=== PATIENT | male | born 1950 | race African-American/Black ===

== ENCOUNTER 2022-08-26 13:21 | Emergency (ER) | payer MEDICARE, MEDICAID ==
[~2022-08-26] VITALS: Ht 180.3 cm; Wt 96.0 kg
[2022-08-26 13:28] VITALS: BP 132/88
[2022-08-26] MEDS ORDERED: PREDNISONE 20MG TABLET PO STA (13:44)
[2022-08-26] MEDS ORDERED: ALBUTEROL (0.083%) 2.5MG/3ML NEB HHN STA (13:44)
[2022-08-26] MEDS ORDERED: IPRATROPIUM BROMIDE (0.02%) 0.5MG/2.5ML NEB HHN STA (13:44)
[2022-08-26 15:48] LABS: BASOPHILS % 0.5 % (0.0-2.0); EOSINOPHILS % 0.3 % (0.0-5.0); LYMPHOCYTES % 6.3 % (20.0-50.0); MEAN CORPUSCULAR HEMOGLOBIN 30.2 pg (28.0-32.0); MEAN CORPUSCULAR VOLUME 88.6 fL (80.0-94.0); MEAN PLATELET VOLUME 8.5 fl (7.4-10.4); MONOCYTES % 7.1 % (2.0-8.0); NEUTROPHILS % 85.8 % (40.0-76.0); PLATELET 154 x1000/uL (130-400); RED BLOOD CELL COUNT 4.62 mill/uL (4.7-6.1); RED CELL DISTRIBUTION WIDTH 14.5 % (11.6-14.6)
[2022-08-26 15:52] LABS: CHLORIDE 103 mEq/L (98-107)
[2022-08-26] MEDS ORDERED: P20 MT (16:39)
[2022-08-26] MEDS ORDERED: ALBU6.7H3 INH (16:40)
== END 2022-08-26 18:08 | disposition home or self-care (01) ==
LOC: ER 13:21
DX: J45.901 Unspecified asthma with (acute) exacerbation (principal)
CPT/HCPCS: 36415; 71045; 80053; 83880; 84443; 84484; 85025; 93005; 94640; 99285; J7512